=== PATIENT | female | born 1980 | race Caucasian/White ===

== ENCOUNTER 2017-11-20 12:17 | Emergency (ER) | payer MEDICAID ==
[2017-11-20 12:30] VITALS: BP 115/69
--- NOTE | 2017-11-20 12:50 | EDM.PDOC ---
ED HPI GENERAL MEDICAL PROBLEM - General Chief Complaint: Respiratory Problem Stated Complaint: HURTS TO BREATHE Time Seen by Provider: 11/20/17 12:44 Source of Information: Reports: Patient History Limitations: Reports: No Limitations - History of Present Illness INITIAL COMMENTS - FREE TEXT/NARRATIVE: 37-year-old female presents for evaluation and treatment of flulike symptoms. Patient reports she has been ill for the last 5 days. Reports current symptoms of headaches, fatigue, decreased energy, cough, sore throat, dry mouth and body aches. She denies any ear pain, nausea, vomiting, diarrhea or abdominal pain. Reports that it hurts to breathe or move. She states that she has a nebulizer machine at home but does not have any nebulizers. Patient reports sharp stabbing chest pains with movement and deep breathing. Patient also complains of urinary tract infection symptoms. She reports dysuria and a strong urine odor. She states she has been drinking plenty of fluids and cranberry juice. Reports that she has "kidney problems ". She states that she was diagnosed in fourth grade and has frequent kidney infections. Patient did not get influenza vaccine this year. Upon my arrival into the exam room the patient states "I'm not leaving here without meds ". Patient reports that she was at the [facility] yesterday. She reports no testing was done and she is very upset by this. Duration: Day(s): (5) Treatments STOCK ROLLER: Reports: Other (see below) Other Treatments STOCK ROLLER: motrin/tylenol Chest Pain Score (Numeric/FACES): 8 - Related Data Allergies Allergy/AdvReac Type Severity Reaction Status Date / Time Penicillins Allergy Severe Anaphylactic Verified 09/09/16 13:29 Shock Home Meds: Home Meds Albuterol [IJD: Albuterol] 2.5 mg NEB Q6HR #25 ml 11/20/17 [Rx] Nitrofurantoin Monohyd/M-Cryst [Macrobid 100 mg Capsule] 100 mg PO BID #10 capsule 11/20/17 [Rx] Past Medical History - Past Health History Medical/Surgical History: Denies Medical/Surgical History Social & Family History - Tobacco Use Smoking Status *Q: Never Smoker Years of Tobacco use: 20 Packs/Tins Daily: 1 Used Tobacco, but Quit: Yes Month Tobacco Last Used: 12/2013 Second Hand Smoke Exposure: No - Caffeine Use Caffeine Use: Reports: Coffee - Alcohol Use Days Per Week of Alcohol Use: 0 - Recreational Drug Use Recreational Drug Use: No ED ROS GENERAL - Review of Systems Review Of Systems: See Below Constitutional: Reports: Chills, Fatigue. Denies: Fever HEENT: Reports: Throat Pain. Denies: Ear Pain Respiratory: Reports: Shortness of Breath, Pleuritic Chest Pain, Cough GI/Abdominal: Denies: Abdominal Pain, Diarrhea, Nausea, Vomiting Neurological: Reports: Headache ED EXAM, GENERAL - Physical Exam Exam: See Below Exam Limited By: No Limitations General Appearance: Alert, WD/WN, No Apparent Distress Eye Exam: Bilateral Eye: Normal Inspection Ears: Normal External Exam, Normal Canal, Hearing Grossly Normal, Normal TMs Nose: Normal Inspection Throat/Mouth: Normal Inspection, Normal Lips, Normal Voice, No Airway Compromise Respiratory/Chest: No Respiratory Distress, Lungs Clear, Normal Breath Sounds Cardiovascular: Normal Peripheral Pulses, Regular Rate, Rhythm, No Murmur Back Exam: Normal Inspection. No: CVA Tenderness (L), CVA Tenderness (R) Neurological: Alert, Oriented, Normal Cognition Psychiatric: Normal Affect, Normal Mood Skin Exam: Warm, Dry, Normal Color Course - Vital Signs Last Recorded V/S: Last Vital Signs Temp 35.9 C 11/20/17 12:29 Pulse 77 11/20/17 12:29 Resp 20 11/20/17 12:29 BP 115/69 11/20/17 12:29 Pulse Ox 97 11/20/17 12:29 - Orders/Labs/Meds Orders: Active Orders 24 hr Category Date Time Status CULTURE STREP A CONFIRMATION [] Stat Lab 11/20/17 13:05 Results CULTURE URINE [] Stat Lab 11/20/17 13:23 Ordered STREP SCRN A RAPID W CULT CONF [] Stat Lab 11/20/17 12:45 Uncollected Labs: Laboratory Tests 11/20/17 Range/Units 13:07 Urine Color Yellow (Yellow) Urine Appearance Clear (Clear) Urine pH 6.0 (5.0-8.0) Ur Specific [place] 1.015 (1.005-1.030) Urine Protein Negative (Negative) Urine Glucose (UA) Negative (Negative) Urine Ketones Negative (Negative) Urine Occult Blood Negative (Negative) Urine Nitrite Negative (Negative) Urine Bilirubin Negative (Negative) Urine Urobilinogen 0.2 (0.2-1.0) Ur Leukocyte Esterase Negative (Negative) Urine RBC Not seen (0-5) /hpf Urine WBC 0-5 (0-5) /hpf Ur Epithelial Cells 5-10 H (0-5) /hpf Urine Bacteria Not seen (FEW) /hpf Urine Mucus Not seen (FEW) /hpf - Radiology Interpretation Free Text/Narrative:: Chest: Two views of the chest were obtained. Comparison: Prior chest x-ray of 09/09/16. Heart size and mediastinum are normal. Lungs are clear. Mild scoliosis is noted within the spine. Nothing acute is seen within the bony structures. Impression: 1. Nothing acute is seen on two-view chest x-ray. 2. No significant change is appreciated from prior study. - Re-Assessments/Exams Free Text/Narrative Re-Assessment/Exam: 11/20/17 13:58 Influenza returned negative. Rapid strep returned negative. I reviewed the UA, lab results and chest x-ray with the patient. We discussed PE. Her PERC score is 0 indicating a less than 2% chance of a PE. I do feel this is likely viral in nature she's had associated upper respiratory symptoms. I will discharge her home with treatment for urinary tract infection and albuterol nebs. urine has been sent for culture. Follow-up this week. Departure - Departure Time of Disposition: 13:57 Disposition: Home, Self-Care 01 Condition: Fair Clinical Impression: Urinary tract infection symptoms, Viral upper respiratory infection - Discharge Information Prescriptions: Albuterol [IJD: Albuterol] 2.5 mg NEB Q6HR #25 ml Nitrofurantoin Monohyd/M-Cryst [Macrobid 100 mg Capsule] 100 mg PO BID #10 capsule Instructions: Urinary Tract Infection, Adult, [id number], Upper Respiratory Infection, Adult, [id number] Referrals: PCP,None [Primary Care Provider] - Janet Shepard FLIGHT TEST SUPERVISOR [Ordering Only Provider] - Forms: ED Department Discharge Additional Instructions: [id number] Tylenol or Motrin as needed for pain relief. Nebulizer 1 every 6 hours as needed for shortness of breath. Macrobid 1 Twice a day for 5 days. Follow-up with family medicine or Tuesday this week for recheck of your symptoms. make sure you are drinking plenty of fluids. Rest. Please return to ER if your symptoms change or worsen. - My Orders Last 24 Hours: My Active Orders 11/20/17 12:45 STREP SCRN A RAPID W CULT CONF [] Stat 11/20/17 13:05 CULTURE STREP A CONFIRMATION [] Stat 11/20/17 13:23 CULTURE URINE [] Stat - Assessment/Plan Last 24 Hours: My Active Orders 11/20/17 12:45 STREP SCRN A RAPID W CULT CONF [] Stat 11/20/17 13:05 CULTURE STREP A CONFIRMATION [] Stat 11/20/17 13:23 CULTURE URINE [] Stat
--- NOTE | 2017-11-20 14:03 | CR ---
Chest: Two views of the chest were obtained. Comparison: Prior chest x-ray of 09/09/16. Heart size and mediastinum are normal. Lungs are clear. Mild scoliosis is noted within the spine. Nothing acute is seen within the bony structures. Impression: 1. Nothing acute is seen on two-view chest x-ray. 2. No significant change is appreciated from prior study. Diagnostic code #2
== END 2017-11-20 14:30 | disposition home or self-care (01) ==
LOC: JD.ED 12:17
DX: J06.9 Acute upper respiratory infection, unspecified (principal); N39.0 Urinary tract infection, site not specified; Z87.891 Personal history of nicotine dependence; Z88.0 Allergy status to penicillin
CPT/HCPCS: 71046; 71046-26; 81001; 87081; 87086; 87430; 87804; 99283; 99284

== ENCOUNTER 2018-02-04 19:57 | Emergency (ER) | payer MEDICAID ==
--- NOTE | 2018-02-04 20:52 | EDM.PDOC ---
ED HPI GENERAL MEDICAL PROBLEM - General Chief Complaint: Flank Pain Stated Complaint: POSS KIDNEY INFECTION Time Seen by Provider: 02/04/18 20:33 Source of Information: Reports: Patient History Limitations: Reports: No Limitations - History of Present Illness INITIAL COMMENTS - FREE TEXT/NARRATIVE: The patient presents with dysuria, frequency and bilateral flank pain. She gets frequent UTIs and this feels like another one. She has no fever, chills, nausea or vomiting. She has some mild low abdominal pain. Onset: Gradual Duration: Day(s): Location: Reports: Abdomen, Back Quality: Reports: Sharp Severity: Moderate Improves with: Reports: None Worsens with: Reports: None Associated Symptoms: Denies: Cough, Fever/Chills, Headaches, Nausea/Vomiting, Shortness of Breath Bilateral Flank Pain Score (Numeric/FACES): 10 - Related Data Allergies Allergy/AdvReac Type Severity Reaction Status Date / Time Penicillins Allergy Severe Anaphylactic Verified 09/09/16 13:29 Shock Home Meds: Home Meds Albuterol [IJD: Albuterol] 2.5 mg NEB Q6HR #25 ml 11/20/17 [Rx] Nitrofurantoin Monohyd/M-Cryst [Macrobid 100 mg Capsule] 100 mg PO BID #10 capsule 02/04/18 [Rx] oxyCODONE HCl/Acetaminophen [Percocet 5-325 mg Tablet] 1 - 2 each PO Q6HR PRN # 20 tablet 02/04/18 [Rx] Past Medical History - Past Health History Medical/Surgical History: Denies Medical/Surgical History Cardiovascular History: Reports: Heart Murmur Genitourinary History: Reports: UTI, Recurrent - Past Surgical History Female Surgical History: Reports: Section Social & Family History - Tobacco Use Smoking Status *Q: Current Every Day Smoker Years of Tobacco use: 5 Packs/Tins Daily: 0.1 Used Tobacco, but Quit: Yes Month/Year Tobacco Last Used: 12/2013 Second Hand Smoke Exposure: No - Caffeine Use Caffeine Use: Reports: Coffee - Alcohol Use Days Per Week of Alcohol Use: 0 - Recreational Drug Use Recreational Drug Use: No ED ROS GENERAL - Review of Systems Review Of Systems: See Below Constitutional: Reports: No Symptoms HEENT: Reports: No Symptoms Respiratory: Reports: No Symptoms Cardiovascular: Reports: No Symptoms Endocrine: Reports: No Symptoms GI/Abdominal: Reports: Abdominal Pain : Reports: Dysuria, Flank Pain, Frequency Musculoskeletal: Reports: Back Pain Skin: Reports: No Symptoms ED EXAM, RENAL/ - Physical Exam Exam: See Below Exam Limited By: No Limitations General Appearance: Alert, No Apparent Distress Ears: Normal External Exam Nose: Normal Inspection Head: Atraumatic, Normocephalic Neck: Normal Inspection Respiratory/Chest: No Respiratory Distress, Lungs Clear, Normal Breath Sounds Cardiovascular: Regular Rate, Rhythm, No Edema, No Murmur GI/Abdominal: Soft, No Organomegaly, No Mass, Tender (Mild lower abdominal pain) Back Exam: CVA Tenderness (L), CVA Tenderness (R) Course - Orders/Labs/Meds Orders: Active Orders 24 hr Category Date Time Status UA W/MICROSCOPIC [URIN] Stat Lab 02/04/18 20:40 Ordered Labs: Laboratory Tests 02/04/18 Range/Units 20:40 Urine Color Yellow (Yellow) Urine Appearance Clear (Clear) Urine pH 5.5 (5.0-8.0) Ur Specific [place] > or = 1.030 (1.005-1.030) Urine Protein Negative (Negative) Urine Glucose (UA) Negative (Negative) Urine Ketones Trace H (Negative) Urine Occult Blood Negative (Negative) Urine Nitrite Negative (Negative) Urine Bilirubin Negative (Negative) Urine Urobilinogen 0.2 (0.2-1.0) Ur Leukocyte Esterase Negative (Negative) Urine RBC 0-5 (0-5) /hpf Urine WBC 0-5 (0-5) /hpf Ur Epithelial Cells 5-10 H (0-5) /hpf Urine Bacteria Moderate H (FEW) /hpf Urine Mucus Moderate H (FEW) /hpf - Re-Assessments/Exams Free Text/Narrative Re-Assessment/Exam: 02/04/18 20:54 I ordered a UTI. 02/04/18 21:13 Her UA does not look that bad. This could be the start of a UTI. I will cover her with some macrobid. Departure - Departure Time of Disposition: 21:15 Disposition: Home, Self-Care 01 Condition: Good Clinical Impression: UTI, Urinary tract infectious disease - Discharge Information Prescriptions: oxyCODONE HCl/Acetaminophen [Percocet 5-325 mg Tablet] 1 - 2 each PO Q6HR PRN # 20 tablet PRN Reason: Pain Nitrofurantoin Monohyd/M-Cryst [Macrobid 100 mg Capsule] 100 mg PO BID #10 capsule Referrals: PCP,None [Primary Care Provider] - Forms: ED Department Discharge Additional Instructions: Drink plenty of fluids. Take the macrobid 2 times per day for 5 days. Take the percocet as needed for pain. Please return if you are worse. - My Orders Last 24 Hours: My Active Orders 02/04/18 20:40 UA W/MICROSCOPIC [URIN] Stat - Assessment/Plan Last 24 Hours: My Active Orders 02/04/18 20:40 UA W/MICROSCOPIC [URIN] Stat
== END 2018-02-04 21:20 | disposition home or self-care (01) ==
LOC: JD.ED 19:57
DX: N39.0 Urinary tract infection, site not specified (principal); F17.210 Nicotine dependence, cigarettes, uncomplicated; Z88.0 Allergy status to penicillin; Z87.440 Personal history of urinary (tract) infections; Z79.899 Other long term (current) drug therapy
CPT/HCPCS: 81001; 99283

== ENCOUNTER 2018-05-21 19:41 | Emergency (ER) | payer MEDICAID ==
[2018-05-21 19:58] VITALS: BP 105/74
--- NOTE | 2018-05-21 20:43 | EDM.PDOC ---
ED HPI GENERAL MEDICAL PROBLEM - General Chief Complaint: Genitourinary Problem Stated Complaint: KIDNEY INFECTION Time Seen by Provider: 05/21/18 20:00 Source of Information: Reports: Patient, RN Notes Reviewed - History of Present Illness INITIAL COMMENTS - FREE TEXT/NARRATIVE: 37 year old female with voiding frequency, low back pain for 4 days. Hx of frequent UTI's with similar sx in the past. no fever, chills, nausea or vomiting. Last UTI about 4 months ago. Back Pain Score (Numeric/FACES): 10 - Related Data Allergies Allergy/AdvReac Type Severity Reaction Status Date / Time Penicillins Allergy Severe Anaphylactic Verified 09/09/16 13:29 Shock Home Meds: Home Meds Albuterol [IJD: Albuterol] 2.5 mg NEB Q6HR #25 ml 11/20/17 [Rx] oxyCODONE HCl/Acetaminophen [Percocet 5-325 mg Tablet] 1 - 2 each PO Q6HR PRN # 20 tablet 02/04/18 [Rx] Nitrofurantoin Monohyd/M-Cryst [Macrobid 100 mg Capsule] 100 mg PO BID #14 capsule 05/21/18 [Rx] Past Medical History - Past Health History Medical/Surgical History: Denies Medical/Surgical History Cardiovascular History: Reports: Heart Murmur Genitourinary History: Reports: UTI, Recurrent - Past Surgical History Female Surgical History: Reports: Section Social & Family History - Tobacco Use Smoking Status *Q: Never Smoker - Caffeine Use Caffeine Use: Reports: Coffee - Recreational Drug Use Recreational Drug Use: No ED ROS GENERAL - Review of Systems Review Of Systems: See Below Constitutional: Denies: Fever, Chills HEENT: Reports: No Symptoms Respiratory: Denies: Shortness of Breath Cardiovascular: Denies: Chest Pain GI/Abdominal: Denies: Abdominal Pain, Nausea, Vomiting : Reports: Frequency, Urgency. Denies: Dysuria Musculoskeletal: Reports: Back Pain Skin: Reports: No Symptoms Neurological: Reports: No Symptoms ED EXAM, RENAL/ - Physical Exam Exam: See Below General Appearance: Alert, No Apparent Distress Throat/Mouth: Normal Inspection, Normal Oropharynx Neck: Supple, Full Range of Motion Respiratory/Chest: No Respiratory Distress, Lungs Clear Cardiovascular: Regular Rate, Rhythm GI/Abdominal: Soft, Non-Tender Back Exam: Other (mild bilat low back tenderness) Extremities: Normal Inspection, Normal Range of Motion Neurological: Alert, Oriented Skin Exam: Warm, Dry, Normal Color Course - Vital Signs Last Recorded V/S: Last Vital Signs Temp 98.8 F 05/21/18 19:56 Pulse 77 05/21/18 19:56 Resp 20 05/21/18 19:56 BP 105/74 05/21/18 19:56 Pulse Ox 100 05/21/18 19:56 - Orders/Labs/Meds Orders: Active Orders 24 hr Category Date Time Status CULTURE URINE [RM] Stat Lab 05/21/18 19:50 Ordered UA W/MICROSCOPIC [URIN] Stat Lab 05/21/18 19:50 Ordered Labs: Laboratory Tests 05/21/18 Range/Units 19:50 Urine Color Yellow (Yellow) Urine Appearance Clear (Clear) Urine pH 6.5 (5.0-8.0) Ur Specific [place] 1.015 (1.005-1.030) Urine Protein Negative (Negative) Urine Glucose (UA) Negative (Negative) Urine Ketones Negative (Negative) Urine Occult Blood Negative (Negative) Urine Nitrite Negative (Negative) Urine Bilirubin Negative (Negative) Urine Urobilinogen 0.2 (0.2-1.0) Ur Leukocyte Esterase Negative (Negative) Urine RBC Not seen (0-5) /hpf Urine WBC 0-5 (0-5) /hpf Ur Epithelial Cells 0-5 (0-5) /hpf Urine Bacteria Moderate H (FEW) /hpf Urine Mucus Not seen (FEW) /hpf Meds: Medications Discontinued Medications Generic Name Dose Route Start Last Admin Trade Name Freq PRN Reason Stop Dose Admin Nitrofurantoin Macrocrystals 100 mg 05/21/18 20:51 05/21/18 20:55 Macrobid PO 05/21/18 20:52 100 mg ONETIME ONE Administration - Re-Assessments/Exams Free Text/Narrative Re-Assessment/Exam: 05/21/18 21:03 Patient has a UTI, culture ordered, macrobid 100 bid for 1 week. Departure - Departure Time of Disposition: 20:52 Disposition: Home, Self-Care 01 Condition: Fair Clinical Impression: UTI, Urinary tract infectious disease - Discharge Information Prescriptions: Nitrofurantoin Monohyd/M-Cryst [Macrobid 100 mg Capsule] 100 mg PO BID #14 capsule Instructions: Urinary Tract Infection, Adult Referrals: PCP,None [Primary Care Provider] - Forms: ED Department Discharge Additional Instructions: Drink plenty of water to maintain hydration. Macrobid antibiotic 100 mg twice daily for 1 week or until gone. See Dr Garcia for continued follow up evaluation for frequent recurrent UTI's. Call his office for appt. - My Orders Last 24 Hours: My Active Orders 05/21/18 19:50 CULTURE URINE [RM] Stat UA W/MICROSCOPIC [URIN] Stat - Assessment/Plan Last 24 Hours: My Active Orders 05/21/18 19:50 CULTURE URINE [RM] Stat UA W/MICROSCOPIC [URIN] Stat
[2018-05-21] MEDS ORDERED: Nitrofurantoin Monohydrate/Macrocrystalline 100 MG Cap PO ONE (20:51)
== END 2018-05-21 21:05 | disposition home or self-care (01) ==
LOC: JD.ED 19:41
DX: N39.0 Urinary tract infection, site not specified (principal); Z88.0 Allergy status to penicillin; Z79.899 Other long term (current) drug therapy
CPT/HCPCS: 81001; 87086; 99283; A9270; 99282

== ENCOUNTER 2019-01-10 16:32 | Emergency (ER) | payer MEDICAID ==
[2019-01-10 17:06] VITALS: BP 103/57
--- NOTE | 2019-01-10 18:23 | EDM.PDOC ---
ED HPI GENERAL MEDICAL PROBLEM - General Chief Complaint: Cardiovascular Problem Stated Complaint: NUMBNESS/TINGLING IN HANDS AND LEGS Time Seen by Provider: 01/10/19 17:58 Source of Information: Reports: Patient, Family History Limitations: Reports: No Limitations - History of Present Illness INITIAL COMMENTS - FREE TEXT/NARRATIVE: 38 yo comes in for blue fingers and numbness/tingling x1 week. She states it was also present in her legs, but that has since resolved. She states she has never had anything like this before. No family h/o Raynaud's, heart disease, vascular issues. She is not a smoker. She denies any other symptoms at this time. She does not see PCP, usually goes to walkin clinic. - Related Data Allergies Allergy/AdvReac Type Severity Reaction Status Date / Time Penicillins Allergy Severe Anaphylactic Verified 01/10/19 17:02 Shock Home Meds: Home Meds . [No Known Home Meds] 01/10/19 [History] Past Medical History - Past Health History Medical/Surgical History: Denies Medical/Surgical History Cardiovascular History: Reports: Heart Murmur Genitourinary History: Reports: UTI, Recurrent - Past Surgical History Female Surgical History: Reports: Section Social & Family History - Family History Family Medical History: Noncontributory - Tobacco Use Smoking Status *Q: Never Smoker - Caffeine Use Caffeine Use: Reports: Coffee - Recreational Drug Use Recreational Drug Use: No ED ROS GENERAL - Review of Systems Review Of Systems: ROS reveals no pertinent complaints other than HPI. ED EXAM, GENERAL - Physical Exam Exam: See Below Exam Limited By: No Limitations General Appearance: Alert, WD/WN, No Apparent Distress Eye Exam: Bilateral Eye: EOMI, Normal Inspection, PERRL Ears: Normal External Exam, Hearing Grossly Normal Nose: Normal Inspection, Normal Mucosa, No Blood Throat/Mouth: Normal Inspection, Normal Lips, Normal Teeth, Normal Gums, Normal Oropharynx, Normal Voice, No Airway Compromise Head: Atraumatic, Normocephalic Neck: Normal Inspection, Supple, Non-Tender, Full Range of Motion Respiratory/Chest: No Respiratory Distress, Lungs Clear, Normal Breath Sounds, No Accessory Muscle Use, Chest Non-Tender Cardiovascular: Normal Peripheral Pulses, Regular Rate, Rhythm, No Edema, No Gallop, No JVD, No Murmur, No Rub Peripheral Pulses: 4+: Brachial (L), Brachial (R), Posterior Tibial (L), Posterior Tibial (R), Dorsalis Pedis (L), Dorsalis Pedis (R) GI/Abdominal: Normal Bowel Sounds, Soft, Non-Tender, No Organomegaly, No Distention, No Abnormal Bruit, No Mass Back Exam: Normal Inspection Extremities: Normal Range of Motion, Non-Tender, No Pedal Edema, Normal Capillary Refill, Other (pale, blue fingertips w/ normal capillary refill) Neurological: Alert, Oriented, CN II-XII Intact, Normal Cognition, Normal Gait, Normal Reflexes, No Motor/Sensory Deficits Psychiatric: Normal Affect, Normal Mood Skin Exam: Warm, Dry, Intact, No Rash. No: Normal Color (pale, blue fingers) Course - Vital Signs Last Recorded V/S: Last Vital Signs Temp 97.9 F 01/10/19 17:03 Pulse 81 01/10/19 17:03 Resp 18 01/10/19 17:03 BP 103/57 L 01/10/19 17:03 Pulse Ox 100 01/10/19 17:03 Departure - Departure Time of Disposition: 18:19 Disposition: Home, Self-Care 01 Condition: Good Clinical Impression: Raynaud phenomenon Instructions: Raynaud Phenomenon Referrals: PCP,None [Primary Care Provider] - Additional Instructions: You were seen in the ED today for blue/numb fingers. After exam and history, it does not seem that there is any acute infection or emergency vascular issue. This is likely a condition called Raynaud's phenomenon, which is common in females and can be a precursor to Rheumatoid Arthritis. There is nothing to do to treat this at this time, as bc of your blood pressure and possible migraine history you are not a candidate for medication that helps to open blood vessels. Recommend follow up with Primary Care Doctor. Please return to ED if new or worsening symptoms.
== END 2019-01-10 18:35 | disposition home or self-care (01) ==
LOC: JD.ED 16:32
DX: I73.00 Raynaud's syndrome without gangrene (principal); Z88.0 Allergy status to penicillin
CPT/HCPCS: 99282; 99283

== ENCOUNTER 2022-04-05 18:47 | Emergency (ER) | payer MEDICAID ==
[2022-04-05 19:00] VITALS: BP 127/70; PULSE 69
[2022-04-05] MEDS ORDERED: Sodium Chloride 0.9% 10 ML Syringe FLUSH PRN (19:09)
[2022-04-05] MEDS ORDERED: HYDROmorphone 0.5 MG/0.5 ML Syringe IVPUSH ONE (19:10)
[2022-04-05 20:38] LABS: ESTIMATED GFR > 60 mL/min (>60)
== END 2022-04-05 21:10 | disposition home or self-care (01) ==
LOC: JD.ED 18:47
DX: S20.212A Contusion of left front wall of thorax, initial encounter (principal); Z88.0 Allergy status to penicillin; W18.30XA Fall on same level, unspecified, initial encounter
CPT/HCPCS: 36415; 71046; 80053; 84484; 85025; 85379; 93005; 96374; 99284; J1170; J3490; 93010

== ENCOUNTER 2023-02-18 12:17 | Emergency (ER) | payer MEDICAID ==
[2023-02-18 13:12] VITALS: BP 111/49; PULSE 96
[2023-02-18] MEDS ORDERED: Ondansetron 4 MG Tab.DIS PO ONE ×2 (13:34→21:05)
[2023-02-18] MEDS ORDERED: Sodium Chloride 0.9% 1,000 ML IV ONE (13:34)
[2023-02-18] MEDS ORDERED: Potassium Chloride 10 MEQ Tab.ER PO ONE (15:10)
[2023-02-18] MEDS: Potassium Chloride 10 MEQ in Premix Bag 1 BAG IV SCH ×4 (15:42→19:40)
[2023-02-18] MEDS ORDERED: Nitrofurantoin Monohydrate/Macrocrystalline 100 MG Cap PO ONE (15:55)
[2023-02-18] MEDS ORDERED: Sodium Chloride 0.9% 1,000 ML IV SCH (16:15)
== END 2023-02-18 21:28 | disposition home or self-care (01) ==
LOC: JD.ED 12:17
DX: O21.2 Late vomiting of pregnancy (principal); O23.42 Unspecified infection of urinary tract in pregnancy, second trimester; N39.0 Urinary tract infection, site not specified; Z88.0 Allergy status to penicillin; Z87.891 Personal history of nicotine dependence; Z3A.25 25 weeks gestation of pregnancy
CPT/HCPCS: 36415; 80053; 81001; 83735; 85025; 86140; 87086; 96361; 96365; 96366; 99284; A9270; J3480; J7030; 99283

== ENCOUNTER 2023-05-30 02:52 | Inpatient (IN) | payer MEDICAID ==
[2023-05-30] MEDS: Lactated Ringers 1,000 ML IV SCH ×2 (06:00→06:46)
[2023-05-30 06:10] LABS: BASOPHILS ABSOLUTE AUTO 0.04 K/mm3 (0.01-0.08); BASOPHILS PERCENT AUTO 0.4 % (0.1-1.2); EOSINOPHILS ABSOLUTE AUTO 0.11 K/mm3 (0.04-0.36); HEMATOCRIT 32.5 % (34.1-44.9); IMMATURE GRAN ABSOLUTE AUTO 0.04 K/mm3 (0.00-0.10); IMMATURE GRAN PERCENT AUTO 0.4 % (<=1.0); LYMPHOCYTES ABSOLUTE AUTO 2.29 K/mm3 (1.18-3.74); LYMPHOCYTES PERCENT AUTO 21.2 % (19.3-51.7); MEAN CORPUSCULAR HEMOGLOBIN 29.1 pg (25.6-32.2); MEAN CORPUSCULAR HGB CONC 33.8 g/dl (32.2-35.5); MEAN PLATELET VOLUME 9.8 fl (9.4-12.3); MONOCYTES ABSOLUTE AUTO 0.54 K/mm3 (0.24-0.36); NEUTROPHILS ABSOLUTE AUTO 7.79 K/mm3 (1.56-6.13); PLATELET COUNT,PLT 246 K/mm3 (182-369); RED BLOOD CELL COUNT 3.78 M/mm3 (3.98-5.22); WHITE BLOOD CELL COUNT,WBC 10.81 K/mm3 (3.98-10.04)
[2023-05-30] MEDS ORDERED: Ondansetron 4 MG/2 ML SDV ONE (06:43)
[2023-05-30] MEDS ORDERED: Morphine PF 1 MG/ML Amp ONE (06:43)
[2023-05-30] MEDS ORDERED: ceFAZolin 2 GM Vial ONE (06:43)
[2023-05-30] MEDS ORDERED: Lactated Ringers 1,000 ML ONE (06:43)
[2023-05-30] MEDS ORDERED: Ketorolac 30 MG/ML SDV ONE (06:43)
[2023-05-30] MEDS ORDERED: Oxytocin 10 Units/1 ML SDV ONE (06:43)
[2023-05-30] MEDS ORDERED: Citric Acid/Sodium Citrate Solution 30 ML Cup PO ONE (07:00)
[2023-05-30] MEDS ORDERED: Metoclopramide 10 MG/2 ML SDV IVPUSH ONE (07:00)
[2023-05-30] MEDS ORDERED: Bupivacaine 0.5% 30 ML SDV ONE (07:20)
[2023-05-30] MEDS ORDERED: ceFAZolin 2 GM in Sodium Chloride 0.9% 50 ML IV PRN (07:45)
[2023-05-30] MEDS ORDERED: Oxytocin/Lactated Ringers 10 UNIT/1,000 ML BAG IV SCH ×2 (08:00→10:34)
[2023-05-30] MEDS ORDERED: ePHEDrine 50 MG/ML SDV ONE (08:00)
[2023-05-30] MEDS ORDERED: fentaNYL 100 MCG/2 ML SDV IVPUSH PRN (08:24)
[2023-05-30] MEDS ORDERED: diphenhydrAMINE 50 MG/ML SDV IVPUSH PRN ×3 (08:24→10:34)
[2023-05-30] MEDS ORDERED: Ondansetron 4 MG/2 ML SDV IVPUSH PRN (08:24)
[2023-05-30] MEDS ORDERED: HYDROmorphone 0.5 MG/0.5 ML Syringe IVPUSH PRN (08:25)
[2023-05-30] MEDS ORDERED: ePHEDrine 50 MG/ML SDV IVPUSH PRN (10:34)
[2023-05-30] MEDS ORDERED: Acetaminophen/oxyCODONE 325-5 MG Tab PO PRN (10:34)
[2023-05-30] MEDS ORDERED: Ondansetron 4 MG/2 ML SDV IV PRN (10:34)
[2023-05-30] MEDS ORDERED: Naloxone 0.4 MG/ML SDV IVPUSH PRN (10:34)
[2023-05-30] MEDS ORDERED: Dextrose 5%-Lactated Ringers 1,000 ML IV SCH (10:34)
[2023-05-30] MEDS: Simethicone 80 MG Tab.Chew PO SCH ×4 (11:31→21:00)
[2023-05-30] MEDS: Docusate Sodium 100 MG Cap PO SCH ×2 (11:31→20:00)
[2023-05-30] MEDS: Prenatal Multivitamin with Calcium/Folic Acid/Iron Tab PO SCH (11:32)
[2023-05-30] MEDS: Ketorolac 30 MG/ML SDV IVPUSH SCH ×2 (13:59→19:55)
[2023-05-30] MEDS: Acetaminophen/oxyCODONE 325-5 MG Tab PO PRN ×2 (16:28→23:00)
[2023-05-30] MEDS ORDERED: Magnesium Hydroxide 400 MG/5 ML Susp 30 ML Cup PO PRN (21:00)
[2023-05-31] MEDS: Ketorolac 30 MG/ML SDV IVPUSH SCH (02:43)
[2023-05-31] MEDS: Acetaminophen/oxyCODONE 325-5 MG Tab PO PRN ×3 (04:30→21:03)
[2023-05-31 06:18] LABS: BASOPHILS ABSOLUTE AUTO 0.04 K/mm3 (0.01-0.08); BASOPHILS PERCENT AUTO 0.3 % (0.1-1.2); EOSINOPHILS ABSOLUTE AUTO 0.08 K/mm3 (0.04-0.36); EOSINOPHILS PERCENT AUTO 0.6 (0.7-5.8); HEMOGLOBIN 9.7 gm/dl (11.2-15.7); IMMATURE GRAN ABSOLUTE AUTO 0.03 K/mm3 (0.00-0.10); IMMATURE GRAN PERCENT AUTO 0.2 % (<=1.0); LYMPHOCYTES PERCENT AUTO 16.6 % (19.3-51.7); MEAN CORPUSCULAR HEMOGLOBIN 28.3 pg (25.6-32.2); MEAN CORPUSCULAR HGB CONC 32.3 g/dl (32.2-35.5); MEAN CORPUSCULAR VOLUME 87.5 fl (79.4-94.8); MEAN PLATELET VOLUME 10.2 fl (9.4-12.3); MONOCYTES ABSOLUTE AUTO 0.62 K/mm3 (0.24-0.36); MONOCYTES PERCENT AUTO 4.3 % (4.7-12.5); NEUTROPHILS ABSOLUTE AUTO 11.27 K/mm3 (1.56-6.13); PLATELET COUNT,PLT 229 K/mm3 (182-369); RED BLOOD CELL COUNT 3.43 M/mm3 (3.98-5.22); WHITE BLOOD CELL COUNT,WBC 14.44 K/mm3 (3.98-10.04)
[2023-05-31] MEDS: Docusate Sodium 100 MG Cap PO SCH ×2 (09:28→21:03)
[2023-05-31] MEDS: Simethicone 80 MG Tab.Chew PO SCH ×4 (09:28→21:02)
[2023-05-31] MEDS: Prenatal Multivitamin with Calcium/Folic Acid/Iron Tab PO SCH (09:28)
[2023-05-31] MEDS: Ibuprofen 600 MG Tab PO PRN ×3 (10:01→23:07)
[2023-06-01] MEDS: Acetaminophen/oxyCODONE 325-5 MG Tab PO PRN (02:58)
[2023-06-01] MEDS: Ibuprofen 600 MG Tab PO PRN (06:41)
[2023-06-01 08:31] VITALS: BP 113/62; PULSE 90
== END 2023-06-01 08:25 | disposition home or self-care (01) | DRG 788 ==
LOC: JD.OB 05:31
PROVIDERS: ADMIT Obstetrics & Gynecology; ATTEND Obstetrics & Gynecology
PROC: 10D00Z1 Extraction of Products of Conception, Low, Open Approach (ICD-10-PCS; principal; 2023-05-30)
DX: O34.211 Maternal care for low transverse scar from previous cesarean delivery (principal); O99.824 Streptococcus B carrier state complicating childbirth; Z37.0 Single live birth; Z88.0 Allergy status to penicillin; Z3A.39 39 weeks gestation of pregnancy; Z79.82 Long term (current) use of aspirin; Z79.899 Other long term (current) drug therapy; Z87.891 Personal history of nicotine dependence
CPT/HCPCS: 01961; 36415; 59025; 85025; 86592; 86850; 86900; 86901; A9270-GY; J0690; J1885; J2274; J2405; J2590; J2765; J3490; J7120; J7121